=== PATIENT | male | born 1960 | race African-American/Black ===

== ENCOUNTER 2020-11-11 10:22 | Emergency (ER) | payer SELFPAY ==
[~2020-11-11] VITALS: Ht 172.7 cm; Wt 68.1 kg
[~2020-11-11 10:22] MED LIST: AMOX1TAB61 PO; DOXY100T PO; HYDR-2761 PO
--- NOTE | 2020-11-11 11:05 | PHYS DOC ---
Past Medical History Past Medical History: Diabetes-Type II Additional Past Medical Histor: Pt denies Past Surgical History: No Surgical History Additional Past Surgical Histo: denies Smoking Status: Current Every Day Smoker Alcohol Use: None Drug Use: Marijuana General Adult EDM: Chief Complaint: ABDOMINAL PAIN HPI: HPI: Patient is a 60 year old male who presented to ER for abdominal pain since last night. Patient has this pain off and on for months, he said he lost a lot of weight. Patient also has constipation problem. Patient denies any nausea vomiting, no cough, no fever. Review of Systems: Review of Systems: Constitutional: Denies fever or chills. [] Eyes: Denies change in visual acuity. [] HENT: Denies nasal congestion or sore throat. [] Respiratory: Denies cough or shortness of breath. [] Cardiovascular: Denies chest pain or edema. [] GI: Positive for abdominal pain : Denies dysuria. [] Musculoskeletal: Denies back pain or joint pain. [] Integument: Denies rash. [] Neurologic: Denies headache, focal weakness or sensory changes. [] Endocrine: Denies polyuria or polydipsia. [] Lymphatic: Denies swollen glands. [] Psychiatric: Denies depression or anxiety. [] Heart Score: Risk Factors: Risk Factors: DM, Current or recent (<one month) smoker, HTN, HLP, family history of CAD, obesity. Risk Scores: Score 0 - 3: 2.5% MACE over next 6 weeks - Discharge Home Score 4 - 6: 20.3% MACE over next 6 weeks - Admit for Clinical Observation Score 7 - 10: 72.7% MACE over next 6 weeks - Early Invasive Strategies Allergies: Allergies: Allergies Coded Allergies Type Severity Reaction Last Updated Verified No Known Drug Allergies 08/20/19 No Physical Exam: PE: Constitutional: Well developed, well nourished, no acute distress, non-toxic appearance. [] HENT: Normocephalic, atraumatic, bilateral external ears normal, oropharynx moist, no oral exudates, nose normal. [] Eyes: PERRLA, EOMI, conjunctiva normal, no discharge. [] Neck: Normal range of motion, no tenderness, supple, no stridor. [] Cardiovascular:Heart rate regular rhythm, no murmur [] Lungs & Thorax: Bilateral breath sounds clear to auscultation [] Abdomen: Bowel sounds normal, soft, no tenderness, no masses, no pulsatile masses. [] Skin: Warm, dry, no erythema, no rash. [] Back: No tenderness, no CVA tenderness. [] Extremities: No tenderness, no cyanosis, no clubbing, ROM intact, no edema. [] Neurologic: Alert and oriented X 3, normal motor function, normal sensory function, no focal deficits noted. [] Psychologic: Affect normal, judgement normal, mood normal. [] Current Patient Data: Labs: Laboratory Tests Test 11/11/20 11:39 11/11/20 12:33 White Blood Count 6.1 x10^3/uL Red Blood Count 4.51 x10^6/uL Hemoglobin 14.2 g/dL Hematocrit 42.4 % Mean Corpuscular Volume 94 fL Mean Corpuscular Hemoglobin 32 pg Mean Corpuscular Hemoglobin Concent 34 g/dL Red Cell Distribution Width 12.6 % Platelet Count 292 x10^3/uL Neutrophils (%) (Auto) 45 % Lymphocytes (%) (Auto) 46 % Monocytes (%) (Auto) 8 % Eosinophils (%) (Auto) 0 % Basophils (%) (Auto) 1 % Neutrophils # (Auto) 2.7 x10^3/uL Lymphocytes # (Auto) 2.8 x10^3/uL Monocytes # (Auto) 0.5 x10^3/uL Eosinophils # (Auto) 0.0 x10^3/uL Basophils # (Auto) 0.0 x10^3/uL Sodium Level 131 mmol/L Potassium Level 4.6 mmol/L Chloride Level 95 mmol/L Carbon Dioxide Level 25 mmol/L Anion Gap 11 Blood Urea Nitrogen 14 mg/dL Creatinine 0.9 mg/dL Estimated GFR (Cockcroft-Gault) 104.9 BUN/Creatinine Ratio 16 Glucose Level 400 mg/dL Calcium Level 9.2 mg/dL Magnesium Level 1.8 mg/dL Total Bilirubin 0.4 mg/dL Aspartate Amino Transf (AST/SGOT) 11 U/L Alanine Aminotransferase (ALT/SGPT) 25 U/L Alkaline Phosphatase 91 U/L Total Protein 7.1 g/dL Albumin 3.6 g/dL Albumin/Globulin Ratio 1.0 Lipase 423 U/L Urine Collection Type Void Urine Color Yellow Urine Clarity Clear Urine pH 6.0 Urine Specific [place] >=1.030 Urine Protein Negative mg/dL Urine Glucose (UA) >=1000 mg/dL Urine Ketones (Stick) Negative mg/dL Urine Blood Negative Urine Nitrite Negative Urine Bilirubin Negative Urine Urobilinogen Dipstick 0.2 mg/dL Urine Leukocyte Esterase Negative Urine RBC 0 /HPF Urine WBC Occ /HPF Urine Squamous Epithelial Cells Occ /LPF Urine Bacteria 0 /HPF Current Medications Medications (Trade) Dose Ordered Sig/Facundo Route PRN Reason Start Time Stop Time Status Last Admin Dose Admin Sodium Chloride 1,000 ml @ 1,000 mls/hr 1X ONCE IV 11/11/20 11:15 11/11/20 12:14 DC 11/11/20 11:40 Iohexol (Omnipaque 300 Mg/ml) 75 ml 1X ONCE IV 11/11/20 13:00 11/11/20 13:01 DC 11/11/20 13:05 Info (CONTRAST GIVEN -- Rx MONITORING) 1 each PRN DAILY PRN MC SEE COMMENTS 11/11/20 13:00 11/13/20 12:59 EKG: EKG: [] Radiology/Procedures: Radiology/Procedures: [][facility] [address] [place] [address] IMAGING REPORT Signed PATIENT: ELOISE JOHNSON ACCOUNT: [id number] : 1960 LOCATION: ER AGE: 60 SEX: M EXAM STATUS: REG ER ORD. PHYSICIAN: DIONICIO TAVERA DO REASON: RUQ abdominal pain, epigastric pain PROCEDURE: ABDOMEN LTD EXAMINATION: US ABDOMEN LTD 11/11/2020 2:04 PM INDICATION: Right upper quadrant abdominal pain, epigastric pain TECHNIQUE: Cortez scale and color Doppler ultrasound images of the right upper quadrant were obtained. COMPARISON: CT abdomen and pelvis 11/11/2020. FINDINGS: Liver: The liver is normal in size measuring 15 cm in length. Normal hepatic echogenicity. No focal liver lesion. Gallbladder: The gallbladder is normal in caliber. No cholelithiasis or sludge. No gallbladder wall thickening. Bile ducts: The common bile duct is normal measuring 4 mm. No intrahepatic biliary duct dilatation. Right kidney: The right kidney measures 12.2 x 5.2 x 5.6 cm. Normal cortical thickness and echogenicity. No hydronephrosis. Other: Inferior vena cava is normal where visualized. The pancreas is not well visualized. IMPRESSION: No cholelithiasis. Normal right upper quadrant ultrasound. Electronically signed by: Kiya Adams MD (11/11/2020 2:34 PM) [id number] DICTATED and SIGNED BY: KIYA ADAMS MD DATE: 11/11/[id number] [facility] [address] [place] [address] IMAGING REPORT Signed PATIENT: ELOISE JOHNSON ACCOUNT: [id number] : 1960 LOCATION: ER AGE: 60 SEX: M EXAM STATUS: REG ER ORD. PHYSICIAN: DIONICIO TAVERA DO REASON: RUQ abdominal pain, epigastric pain PROCEDURE: ABDOMEN LTD EXAMINATION: US ABDOMEN LTD 11/11/2020 2:04 PM INDICATION: Right upper quadrant abdominal pain, epigastric pain TECHNIQUE: Cortez scale and color Doppler ultrasound images of the right upper quadrant were obtained. COMPARISON: CT abdomen and pelvis 11/11/2020. FINDINGS: Liver: The liver is normal in size measuring 15 cm in length. Normal hepatic echogenicity. No focal liver lesion. Gallbladder: The gallbladder is normal in caliber. No cholelithiasis or sludge. No gallbladder wall thickening. Bile ducts: The common bile duct is normal measuring 4 mm. No intrahepatic biliary duct dilatation. Right kidney: The right kidney measures 12.2 x 5.2 x 5.6 cm. Normal cortical thickness and echogenicity. No hydronephrosis. Other: Inferior vena cava is normal where visualized. The pancreas is not well visualized. IMPRESSION: No cholelithiasis. Normal right upper quadrant ultrasound. Electronically signed by: Kiya Adams MD (11/11/2020 2:34 PM) [id number] DICTATED and SIGNED BY: KIYA ADAMS MD DATE: 11/11/20 [id number] 0 Course & Med Decision Making: Course & Med Decision Making Pertinent Labs and Imaging studies reviewed. (See chart for details) Patient is a 60-year-old male who was found to be hyperglycemic, patient said he has history of diabetes but he not been taking any medication because he had no doctor. Patient was seen here today due to abdominal pain, CT scan and ultrasound of abdomen pelvic did not show any acute problem. Patient will be discharged home with a prescription for Metformin. Patient will need to follow- up with her family physician for outpatient treatment. Joni Disclaimer: Joni Disclaimer: This electronic medical record was generated, in whole or in part, using a voice recognition dictation system. Departure Departure Impression: Primary Impression: Abdominal pain Additional Impression: Hyperglycemia Disposition: 01 DC HOME SELF CARE/HOMELESS Condition: STABLE Referrals: NO PCP (PCP) follow up with your doctor as needed next week Patient Instructions: Abdominal Pain, Hyperglycemia Additional Instructions: [facility] [address] [place] [address] [employer] [address] [place] [address] [facility] [address] [facility] [place] [address] [facility] [address] [place] [address] [facility] [address] [place] [address] [address] [place] [address] [facility] [address] [place] [address] [facility] [address] [place] [address] [facility] [address] [place] [address] [facility] [address] [place] [address] Scripts Metformin Hcl (METFORMIN HCL) 500 Mg Tablet 500 MG PO BIDWMEALS for ANTI-DIABETIC for 30 Days, #60 TAB 0 Refills Prov: DIONICIO TAVERA DO 11/11/20 DIONICIO TAVERA DO Nov 11, 2020 11:05
[2020-11-11] MEDS ORDERED: IV NORMAL SALINE 1000ML BAG 1,000 ML IV ONE (11:15)
[2020-11-11 11:49] LABS: BASO % 1 % (0-3); EOS % 0 % (0-3); HEMATOCRIT 42.4 % (39.0-53.0); HEMOGLOBIN 14.2 g/dL (13.0-17.5); LYMPH # 2.8 x10^3/uL (1.0-4.8); LYMPH % 46 % (24-48); MEAN CORPUSCULAR HEMOGLOBIN 32 pg (25-35); MEAN CORPUSCULAR HGB CONC 34 g/dL (31-37); MEAN CORPUSCULAR VOLUME 94 fL (79-100); MONO # 0.5 x10^3/uL (0.0-1.1); MONO % 8 % (0-9); NEUT # 2.7 x10^3/uL (1.8-7.7); NEUT % 45 % (31-73); PLATELET COUNT 292 x10^3/uL (140-400); RED BLOOD COUNT 4.51 x10^6/uL (4.30-5.70); RED CELL DISTRIBUTION WIDTH 12.6 % (11.5-14.5); WHITE BLOOD COUNT 6.1 x10^3/uL (4.0-11.0)
[2020-11-11 12:04] LABS: CALCIUM 9.2 mg/dL (8.5-10.1); CREATININE 0.9 mg/dL (0.7-1.3); GFR 104.9; POTASSIUM 4.6 mmol/L (3.5-5.1)
[2020-11-11 12:09] LABS: ALBUMIN 3.6 g/dL (3.4-5.0); MAGNESIUM 1.8 mg/dL (1.8-2.4); TOTAL BILIRUBIN 0.4 mg/dL (0.2-1.0); TOTAL PROTEIN 7.1 g/dL (6.4-8.2)
[2020-11-11 12:48] LABS: BILIRUBIN,URINE NEGATIVE (NEG); CLARITY,URINE CLEAR; COLOR,URINE YELLOW; NITRITE,URINE NEGATIVE (NEG); PROTEIN,URINE NEGATIVE (NEG-TRACE); UROBILINOGEN,URINE 0.2 mg/dL (0.2 mg/dL)
[2020-11-11] MEDS ORDERED: IOHEXOL 300 MG/ML 100ML VIAL. IV ONE (13:00)
[2020-11-11] MEDS ORDERED: CONTRAST GIVEN. MC PRN (13:00)
[2020-11-11 13:15] LABS: BACTERIA,URINE 0 /HPF (0-FEW); RBC,URINE 0 /HPF (0-2); WBC,URINE OCC /HPF (0-4)
--- NOTE | 2020-11-11 13:33 | RAD ---
Study: CT abdomen/pelvis with intravenous contrast Indication: Abdominal pain. Comparison: None. Technique: Helical CT imaging performed of the abdomen and pelvis after the intravenous administratio n of 75 cc Omnipaque 300 contrast. Sagittal and coronal reformats were obtained. One or more of the following individualized dose reduction techniques were utilized for this examinat ion: 1. Automated exposure control 2. Adjustment of the mA and/or kV according to patient size 3. Use of iterative reconstruction technique. Findings: Relative low-attenuation of the liver parenchyma relative to the spleen often seen with fatty infiltr ation. Possible small gallstone at the fundal region, image [address] manifestations of acute dunia cystitis. Nondilated biliary tree. Unremarkable pancreas, spleen and adrenal glands. No complex renal cyst or mass. Symmetric renal parenchymal enhancement. No collecting system dilatati on. No focal urinary bladder wall thickening. Mild enlargement of the prostate measuring approximatel y 4.1 cm transverse. A few colonic diverticuli without diverticulitis. Mild volume well-formed stool burden. No inflammato ry changes at the expected location of the appendix. Nonobstructed small bowel. Limited assessment of the stomach on account of underdistention. Scattered calcified and noncalcified atheromatous plaque involving the aorta and iliofemoral system. No aneurysmal dilatation. At least mild but potentially moderate stenosis along the proximal right malone perficial femoral artery on account of noncalcified plaque but not fully characterized by technique, image 86 series 2. No lymphadenopathy by size criteria. No free fluid or pneumoperitoneum. No acute abnormality at the lower chest. Mild bilateral hip arthrosis. Mild degenerative changes of the visualized spine. Impression: 1. No acute abnormality identified throughout the abdomen or pelvis to explain the patient's symptom s. 2. There may be a small gallstone at the gallbladder fundus but without any findings by CT to sugges t acute cholecystitis. 3. A few chronic findings as outlined in the body of the report to include mild to potentially moder ate right superficial femoral artery stenosis on account of noncalcified atheromatous plaque. Electronically signed by: APPLE REILLY MD (11/11/2020 1:31 PM) [id number]
--- NOTE | 2020-11-11 14:36 | RAD ---
EXAMINATION: US ABDOMEN LTD 11/11/2020 2:04 PM INDICATION: Right upper quadrant abdominal pain, epigastric pain TECHNIQUE: Cortez scale and color Doppler ultrasound images of the right upper quadrant were obtained. COMPARISON: CT abdomen and pelvis 11/11/2020. FINDINGS: Liver: The liver is normal in size measuring 15 cm in length. Normal hepatic echogenicity. No focal liver lesion. Gallbladder: The gallbladder is normal in caliber. No cholelithiasis or sludge. No gallbladder wall thickening. Bile ducts: The common bile duct is normal measuring 4 mm. No intrahepatic biliary duct dilatation. Right kidney: The right kidney measures 12.2 x 5.2 x 5.6 cm. Normal cortical thickness and echogenic ity. No hydronephrosis. Other: Inferior vena cava is normal where visualized. The pancreas is not well visualized. IMPRESSION: No cholelithiasis. Normal right upper quadrant ultrasound. Electronically signed by: Kiya Adams MD (11/11/2020 2:34 PM) [id number]
[2020-11-11] MEDS ORDERED: METF500T16 PO (14:46)
[2020-11-11 15:12] VITALS: BP 137/69
--- NOTE | 2020-11-19 04:35 | EKG ---
[facility] [address] [place] [address] Test Date: 2020-11-14 Test Time: 22:12:23 Pat Name: ELOISE JOHNSON Department: Room: Gender: M Employee Relations Consultant: : 1960 Requested By: DIONICIO TAVERA Order Number: [id number] Reading MD: Measurements Intervals [place] Rate: 101 P: 39 HI: 124 QRS: 52 QRSD: 84 T: 46 QT: 384 QTc: 499 Interpretive Statements SINUS TACHYCARDIA QRS(T) CONTOUR ABNORMALITY CONSISTENT WITH ANTEROSEPTAL INFARCT AGE UNDETERMINED ABNORMAL ECG RI6.02 No previous ECG available for comparison
== END 2020-11-11 15:36 | disposition home or self-care (01) ==
LOC: ER 10:22
DX: R10.11 Right upper quadrant pain (principal); R10.13 Epigastric pain; E11.65 Type 2 diabetes mellitus with hyperglycemia; F17.200 Nicotine dependence, unspecified, uncomplicated
CPT/HCPCS: 36415; 74177; 76705; 80053; 81001; 83690; 83735; 85025; 96360; 99285; J7030; Q9967

== ENCOUNTER 2020-11-23 09:37 | Emergency (ER) | payer SELFPAY ==
[~2020-11-23] VITALS: Ht 165.1 cm; Wt 56.8 kg
[~2020-11-23 09:37] MED LIST changes: +METF500T16 PO
--- NOTE | 2020-11-23 10:13 | PHYS DOC ---
Past Medical History Past Medical History: Diabetes-Type II Additional Past Medical Histor: Pt denies Past Surgical History: No Surgical History Additional Past Surgical Histo: denies Smoking Status: Never Smoker Alcohol Use: None Drug Use: Marijuana General Adult EDM: Chief Complaint: ABDOMINAL PAIN HPI: HPI: Patient is a 60 year old male with a history of uncontrolled diabetes type 2, who presents to the ED today complaining of 10 out of 10 mid bilateral abdominal pain, symptoms of been going on for "months". Denies any fever, nausea, vomiting, diarrhea. Denies anything exacerbating or relieving the pain. Patient also states he has lost a lot of weight for the last couple months that he does not have the exact timeframe. Patient was in the ED in November 11 for similar complaints, had a negative work-up. Review of Systems: Review of Systems: Constitutional: Denies fever or chills. [] Eyes: Denies change in visual acuity. [] HENT: Denies nasal congestion or sore throat. [] Respiratory: Denies cough or shortness of breath. [] Cardiovascular: Denies chest pain or edema. [] GI: Reports bilateral mid abdominal pain, denies nausea, vomiting, bloody stools or diarrhea. [] : Denies dysuria. [] Musculoskeletal: Denies back pain or joint pain. [] Integument: Denies rash. [] Neurologic: Denies headache, focal weakness or sensory changes. [] Psychiatric: Denies depression or anxiety. [] Heart Score: Risk Factors: Risk Factors: DM, Current or recent (<one month) smoker, HTN, HLP, family history of CAD, obesity. Risk Scores: Score 0 - 3: 2.5% MACE over next 6 weeks - Discharge Home Score 4 - 6: 20.3% MACE over next 6 weeks - Admit for Clinical Observation Score 7 - 10: 72.7% MACE over next 6 weeks - Early Invasive Strategies Allergies: Allergies: Allergies Coded Allergies Type Severity Reaction Last Updated Verified No Known Drug Allergies 11/23/20 No Physical Exam: PE: Constitutional: Well developed, well nourished, no acute distress, non-toxic appearance. [] HENT: Normocephalic, atraumatic, bilateral external ears normal, oropharynx moist, no oral exudates, nose normal. [] Eyes: PERRLA, EOMI, conjunctiva normal, no discharge. [] Neck: Normal range of motion, no tenderness, supple, no stridor. [] Cardiovascular:Heart rate regular rhythm, no murmur [] Lungs & Thorax: Bilateral breath sounds clear to auscultation [] Abdomen: Bowel sounds normal, soft, no tenderness, no masses, no pulsatile masses. [] Skin: Warm, dry, no erythema, no rash. [] Back: No tenderness, no CVA tenderness. [] Extremities: No tenderness, no cyanosis, no clubbing, ROM intact, no edema. [] Neurologic: Alert and oriented X 3, normal motor function, normal sensory function, no focal deficits noted. [] Psychologic: Affect normal, judgement normal, mood normal. [] Current Patient Data: Vital Signs: Vital Signs Date Time Temp Pulse Resp B/P (MAP) Pulse Ox O2 Delivery O2 Flow Rate FiO2 11/23/20 09:50 98.3 95 16 141/85 (103) 99 Room Air 98.3 EKG: EKG: [] Radiology/Procedures: Radiology/Procedures: []PATIENT: JAKY JOHNSONUNT: [id number]#: [id number] : 1960 LOCATION: ER AGE: 60 SEX: M EXAM STATUS: REG ER ORD. PHYSICIAN: GRACE SIDDIQUI APRN REASON: abd pain PROCEDURE: CT ABD PELV W/ IV CONTRST ONLY EXAM: CT Abdomen and Pelvis with IV contrast INDICATION: Reason: abd pain / Spl. Instructions: omni 300 75ml / History: TECHNIQUE: Multi-detector row CT images were acquired from the lung bases through the abdomen and pelvis with the use of IV contrast. Sagittal and coronal images were acquired from the transaxial data. All CT scans performed at this facility utilize dose optimization techniques as appropriate to the exam, including the following: Automated exposure control and adjustment of the mA and/or KV according to patient size (this includes techniques or standardized protocols for targeted exams where dose is indication/reason for exam). IV CONTRAST: Administered ORAL CONTRAST: Not administered COMPARISON: Contrast-enhanced abdomen pelvis CT of 11/11/2020 FINDINGS: LOWER CHEST: Unremarkable LIVER: Unremarkable BILIARY SYSTEM: Gallbladder is unremarkable. Bile ducts are not dilated. PANCREAS: Unremarkable SPLEEN: Unremarkable ADRENALS: Unremarkable KIDNEYS & URETERS: Unremarkable BLADDER: Unremarkable REPRODUCTIVE ORGANS: Unremarkable GASTROINTESTINAL: The stomach, small bowel, and colon are unremarkable. The visualized appendix is normal. MESENTERY/PERITONEUM/RETROPERITONEUM: Unremarkable VASCULAR: Unremarkable LYMPH NODES: No adenopathy OSSEOUS & SOFT TISSUES: Unremarkable IMPRESSION: Unremarkable CT of the abdomen and pelvis. Electronically signed by: Jeffrey Gunderson MD (11/23/2020 11:55 AM) [id number] DICTATED and SIGNED BY: JEFFREY GUNDERSON MD DATE: 11/23/20 [id number] 0 Course & Med Decision Making: Course & Med Decision Making Pertinent Labs and Imaging studies reviewed. (See chart for details) This is a 60-year-old male patient presented to the ED today complaining of mid abdominal pain for months. Patient was in the ED on November 11, 2020 with similar complaints. Was worked up with a negative ultrasound as well as lab work. CBC with a normal WBC, hemoglobin 12.7 with hematocrit of 37.9, this is being more than 1 patient was in the ED 11 days ago. Hemoccult is negative. CT of the abdomen and pelvic is negative. CMP with glucose of 212, anion gap is normal. Talk to patient about his results. I provided him a primary care d carlors list for follow-up. I provided him a GI for follow-up. Joni Disclaimer: Joni Disclaimer: This electronic medical record was generated, in whole or in part, using a voice recognition dictation system. Departure Departure Impression: Primary Impression: Abdominal pain Qualified Codes: R10.33 - Periumbilical pain Additional Impression: Hyperglycemia Disposition: 01 DC HOME SELF CARE/HOMELESS Condition: STABLE Referrals: NO PCP (PCP) follow up in 1-2 weeks Patient Instructions: Abdominal Pain, Hyperglycemia Additional Instructions: You were evaluated in the emergency room for abdominal pain. You had a negative CAT scan of the abdomen and pelvic. Your hemoglobin was low at 12.7 with hematocrit of 37.9. We recommend you follow-up with a traffic operations engineer provided as well as a primary care doctor provided. Blood glucose was 212. You really need to follow-up with a primary care doctor to get your numbers under control. Scripts Dicyclomine Hcl (DICYCLOMINE HCL) 20 Mg Tablet 1 TAB PO TID, #30 TAB 1 Refill Prov: MUTUNGA,GRACE EX CHEF 11/23/20 GRACE SIDDIQUI APRN Nov 23, 2020 10:13
[2020-11-23] MEDS ORDERED: ONDANSETRON PF 4 MG/2 ML VIAL. IVP ONE (10:15)
[2020-11-23] MEDS ORDERED: IOHEXOL 300 MG/ML 100ML VIAL. IV ONE (10:15)
[2020-11-23] MEDS ORDERED: KETOROLAC 30 MG/ML VIAL. IVP ONE (10:15)
[2020-11-23] MEDS ORDERED: CONTRAST GIVEN. MC PRN (10:30)
[2020-11-23 11:28] LABS: BASO % 1 % (0-3); EOS % 0 % (0-3); HEMATOCRIT 37.9 % (39.0-53.0); HEMOGLOBIN 12.7 g/dL (13.0-17.5); LYMPH # 3.1 x10^3/uL (1.0-4.8); LYMPH % 50 % (24-48); MEAN CORPUSCULAR HEMOGLOBIN 31 pg (25-35); MEAN CORPUSCULAR HGB CONC 34 g/dL (31-37); MEAN CORPUSCULAR VOLUME 93 fL (79-100); MONO # 0.7 x10^3/uL (0.0-1.1); MONO % 12 % (0-9); NEUT # 2.3 x10^3/uL (1.8-7.7); NEUT % 38 % (31-73); PLATELET COUNT 322 x10^3/uL (140-400); RED BLOOD COUNT 4.07 x10^6/uL (4.30-5.70); RED CELL DISTRIBUTION WIDTH 12.6 % (11.5-14.5); WHITE BLOOD COUNT 6.2 x10^3/uL (4.0-11.0)
[2020-11-23 11:33] LABS: CREATININE 0.7 mg/dL (0.7-1.3); GFR 140.2; POTASSIUM 4.1 mmol/L (3.5-5.1)
[2020-11-23 11:39] LABS: ALBUMIN/GLOBULIN RATIO 0.8 (1.0-1.7); MAGNESIUM 1.6 mg/dL (1.8-2.4); TOTAL BILIRUBIN 0.4 mg/dL (0.2-1.0); TOTAL PROTEIN 6.8 g/dL (6.4-8.2)
--- NOTE | 2020-11-23 11:58 | RAD ---
EXAM: CT Abdomen and Pelvis with IV contrast INDICATION: Reason: abd pain / Spl. Instructions: omni 300 75ml / History: TECHNIQUE: Multi-detector row CT images were acquired from the lung bases through the abdomen and pel vis with the use of IV contrast. Sagittal and coronal images were acquired from the transaxial data. All CT scans performed at this facility utilize dose optimization techniques as appropriate to the ex am, including the following: Automated exposure control and adjustment of the mA and/or KV according to patient size (this includes techniques or standardized protocols for targeted exams where dose is indication/reason for exam). IV CONTRAST: Administered ORAL CONTRAST: Not administered COMPARISON: Contrast-enhanced abdomen pelvis CT of 11/11/2020 FINDINGS: LOWER CHEST: Unremarkable LIVER: Unremarkable BILIARY SYSTEM: Gallbladder is unremarkable. Bile ducts are not dilated. PANCREAS: Unremarkable SPLEEN: Unremarkable ADRENALS: Unremarkable KIDNEYS & URETERS: Unremarkable BLADDER: Unremarkable REPRODUCTIVE ORGANS: Unremarkable GASTROINTESTINAL: The stomach, small bowel, and colon are unremarkable. The visualized appendix is no rmal. MESENTERY/PERITONEUM/RETROPERITONEUM: Unremarkable VASCULAR: Unremarkable LYMPH NODES: No adenopathy OSSEOUS & SOFT TISSUES: Unremarkable IMPRESSION: Unremarkable CT of the abdomen and pelvis. Electronically signed by: Lauren Gunderson MD (11/23/2020 11:55 AM) [id number]
[2020-11-23 13:05] LABS: FECAL OB PT NEGATIVE (NEG)
[2020-11-23] MEDS ORDERED: DICY20TA3 PO (13:37)
[2020-11-23 13:48] VITALS: BP 147/87
== END 2020-11-23 14:17 | disposition home or self-care (01) ==
LOC: ER 09:37
DX: R10.33 Periumbilical pain (principal); E11.65 Type 2 diabetes mellitus with hyperglycemia; F12.90 Cannabis use, unspecified, uncomplicated; Z98.890 Other specified postprocedural states
CPT/HCPCS: 36415; 74177; 80053; 82274; 83690; 83735; 85025; 96374; 96375; 99285; G0480; J1885; J2405; Q9967